=== PATIENT | female | born 1935 | race Caucasian/White ===

== ENCOUNTER → 2023-06-21 13:58 | Outpatient (REF) | payer MEDICARE, OTHER, SELFPAY | LOC: HWRAD 13:58 | PROVIDERS: ATTENDING PHYSICIAN Family Medicine | DX: M81.0 Age-related osteoporosis without current pathological fracture (principal) | CPT/HCPCS: 77080 ==

== ENCOUNTER → 2023-09-12 11:47 | Outpatient (REF) | payer MEDICARE, OTHER, SELFPAY ==
[2023-09-12 16:15] LABS: Blood Urea Nitrogen 37 mg/dl (7-17); Calcium 9.7 mg/dl (8.4-10.2); Carbon Dioxide 26 mmol/L (22-30); Chloride 103 mmol/L (98-107); Glucose 91 mg/dl (70-99); Sodium 138 mmol/L (135-145); eGFR 54.53
[2023-09-12 21:22] LABS: Potassium 4.8 mmol/L (3.5-5.1)
== END ==
LOC: HWLAB 11:47
PROVIDERS: ATTENDING PHYSICIAN Family Medicine
DX: I10 Essential (primary) hypertension (principal)
CPT/HCPCS: 36415; 80048

== ENCOUNTER → 2023-09-21 12:37 | Outpatient (REF) | payer MEDICARE, OTHER, SELFPAY | LOC: HWRAD 12:37 | PROVIDERS: ATTENDING PHYSICIAN Family Medicine | DX: R07.9 Chest pain, unspecified (principal) | CPT/HCPCS: 71270; Q9967 ==

== ENCOUNTER → 2024-03-07 11:54 | Outpatient (REF) | payer MEDICARE, OTHER, SELFPAY ==
[2024-03-07 16:15] LABS: % Basophils 1.1 % (0-2); % Eosinophils 5.1 % (0-6); % Immature Granulocytes 0.4 % (0-0.5); % Lymphocytes 29.1 % (20.5-51.1); % Monocytes 7.9 % (1.7-9.3); % Neutrophils 56.4 % (42.2-75.2); Absolute Basophils 0.1 10^3/uL (0-0.2); Absolute Eosinophils 0.4 10^3/uL (0-0.7); Absolute Lymphocytes 2.2 10^3/uL (1.2-3.4); Absolute Monocytes 0.6 10^3/uL (0.1-0.6); Absolute Neutrophils 4.3 10^3/uL (1.4-6.5); Hematocrit 40.8 % (37.0-47.0); Hemoglobin 13.4 g/dL (12.0-16.0); Mean Corp Hgb Conc. 32.8 g/dL (33.0-37.0); Mean Corpuscular Hgb 28.8 pg (27.0-31.0); Mean Corpuscular Volume 87.7 fL (81.0-99.0); Mean Platelet Volume 10.7 fL (7.4-10.4); Nucleated Red Blood Cells % 0 %; Platelet Count 190 10^3/uL (130-400); Red Blood Cell Count 4.65 10^6/uL (4.20-5.40); Red Cell Dist. Width 13.7 % (11.5-14.5); White Blood Cell Count 7.6 10^3/uL (4.8-10.8)
[2024-03-07 16:23] LABS: ALT (SGPT) 24 U/L (0-35); AST (SGOT) 30 U/L (14-36); Albumin 4.3 g/dl (3.5-5.0); Alkaline Phosphatase 112 U/L (38-126); Blood Urea Nitrogen 33 mg/dl (7-17); Calcium 9.7 mg/dl (8.4-10.2); Carbon Dioxide 28 mmol/L (22-30); Chloride 101 mmol/L (98-107); Glucose 85 mg/dl (70-99); HDL Cholesterol 73 mg/dl; LDL Cholesterol, Calculated 81 mg/dl; Potassium 4.3 mmol/L (3.5-5.1); Sodium 137 mmol/L (135-145); Total Bilirubin 0.5 mg/dl (0.2-1.3); Total Cholesterol 173 mg/dl (50-199); Total Protein 7.5 g/dl (6.3-8.2); Triglyceride 97 mg/dl (10-149); Very Low Density Lipoprotein 19 mg/dl (0-30); eGFR > 60.00
[2024-03-07 16:52] LABS: TSH 2.93 uIU/ml (0.47-4.68)
== END ==
LOC: HWLAB 11:54
PROVIDERS: ATTENDING PHYSICIAN Family Medicine
DX: R53.83 Other fatigue (principal); I10 Essential (primary) hypertension; E78.5 Hyperlipidemia, unspecified; M25.551 Pain in right hip
CPT/HCPCS: 36415; 72100; 73502; 80053; 80061; 84443; 85025

== ENCOUNTER 2024-04-11 06:43 | Day surgery (SDC) | payer MEDICARE, OTHER, SELFPAY ==
[2024-04-11 09:07] VITALS: BP 153/84
[2024-04-11 09:17] VITALS: BMI 34.1
[2024-04-11 10:34] VITALS: BP 102/63
[2024-04-11 10:45] VITALS: BP 108/66
[2024-04-11 10:51] VITALS: BP 119/76
== END 2024-04-11 11:15 | disposition home or self-care (01) ==
LOC: SDS 06:43
PROVIDERS: ATTENDING PHYSICIAN Internal Medicine Gastroenterology
DX: R13.12 Dysphagia, oropharyngeal phase (principal); R13.14 Dysphagia, pharyngoesophageal phase; Q39.9 Congenital malformation of esophagus, unspecified
CPT/HCPCS: 43249; C1726

== ENCOUNTER → 2024-05-28 09:02 | Outpatient (REF) | payer MEDICARE, OTHER, SELFPAY | LOC: RST 09:02 | PROVIDERS: ATTENDING PHYSICIAN Internal Medicine Gastroenterology; FAMILY PHYSICIAN Family Medicine | DX: R13.12 Dysphagia, oropharyngeal phase (principal); R13.19 Other dysphagia | CPT/HCPCS: 74221; 74230; 92611 ==